=== PATIENT | female | born 1985 ===

== ENCOUNTER 2023-12-05 00:17 | Emergency (ER) | payer SELFPAY ==
[2023-12-05] MEDS ORDERED: Ondansetron ODT 4 MG TAB ONE (00:52)
[2023-12-05 00:53] LABS: Bilirubin Neg (Negative); Blood, Urine 150 (Negative); Clarity Clear (Clear); Glucose, Urine (Dipstick) Normal (Negative); Ketone, Urine Negative (Negative); Leukocyte 500 (Negative); Nitrite Negative (Negative); Protein, Urine (Dipstick) 15 mg/dl (Neg-Trace); Urobilinogen Normal mg/dL (Less than 2)
[2023-12-05 00:58] LABS: Pregnancy Test - Urine (BHCG) Negative (Negative); Pregu Control Background? CLEAR/WHITE (CLR/WHITE); Pregu Control Bar Appear? YES (CONTROL BAR)
[2023-12-05 01:20] LABS: Bacteria/HPF 1+ HPF (None Seen); CAUTI Indications for Culture Pelvic or flank pain; Squamous Epithelial 0-3 HPF (0-3)
[2023-12-05 01:21] LABS: White Blood Cell Cast 0-3 LPF (None Seen)
[2023-12-05 01:22] LABS: Urine Culture Reflex No No
[2023-12-05 01:47] LABS: Influenza A by NAA Not Detected (NotDetected); Influenza B by NAA Not Detected (NotDetected); SARS-CoV-2 NAA Rapid Test DETECTED (NotDetected)
[2023-12-05] MEDS ORDERED: cefTRIAXone (ROCEPHIN) 500 MG VIAL ONE (02:02)
[2023-12-05] MEDS ORDERED: Lidocaine 1% MPF 2 ML VIAL ONE (02:02)
== END 2023-12-05 02:20 | disposition home or self-care (01) ==
LOC: CSHLD/OP 00:17 → CSHERS 00:17 → CSHLD/OP 02:20
DX: U07.1 COVID-19 (principal); N39.0 Urinary tract infection, site not specified
CPT/HCPCS: 81001; 81025; 99284; J0696; Q0162